=== PATIENT | male | born 1950 | race African-American/Black ===

== ENCOUNTER 2019-08-09 15:21 | Inpatient (IN) | payer OTHER, MEDICAID ==
[~2019-08-09] VITALS: Ht 165.1 cm; Wt 62.2 kg
[2019-08-09 15:53] LABS: Hematocrit 37.6 % (41.0-53.0); Hemoglobin 12.6 g/dL (13.5-17.5); Mean Corpuscular Hemoglobin 30.2 pg (28.0-32.0); Mean Corpuscular Hgb Conc. 33.7 g/dL (32.0-36.0); Mean Corpuscular Volume 89.7 fL (80.0-100.0); Platelet Count (auto) 198 10^3/uL (140-450); Red Blood Cells 4.19 10^6/uL (4.5-5.90); Red Cell Distribution Width 13.6 % (11.8-14.3); White Blood Cell 5.8 10^3/uL (4.4-10.8)
[2019-08-09 15:57] LABS: Band Neutrophils % (manual) 0; Basophils % (manual) 0 (0.0-2.0); Blast Cells 0; Metamyelocytes % 0; Myelocytes % 0; Promyelocytes % 0; Reactive Lymphocytes 0
[2019-08-09 16:07] LABS: Alanine Aminotransferase 16 U/L (16-61); Anion Gap 5 (5-15); Aspartate Aminotransferase 11 U/L (15-37); BUN/Creatinine Ratio 22.2; Blood Urea Nitrogen 20 mg/dL (7-18); Calcium 8.3 mg/dL (8.5-10.1); Carbon Dioxide 29 mmol/L (21-32); Chloride 106 mmol/L (98-107); GFR African American 108 mL/min; GFR Non-African American 89 mL/min; Glucose 98 mg/dL (74-106); Sodium 140 mmol/L (136-145)
[2019-08-09 16:10] LABS: Alkaline Phosphatase 80 U/L (45-117); Bilirubin, Total 0.4 mg/dL (0.2-1.0); Total Protein 7.5 g/dL (6.4-8.2)
[2019-08-09 16:16] LABS: Potassium 2.8 mmol/L (3.5-5.1)
[2019-08-09] MEDS ORDERED: ONDANSETRON HCL 4 MG/2 ML VIAL IV ONE (16:30)
[2019-08-09] MEDS ORDERED: POTASSIUM CHL 20MEQ/100ML 100 ML IV ONE (16:30)
[2019-08-09] MEDS ORDERED: MORPHINE SULF INJ 2 MG/ML SYRINGE 1ML IV ONE (16:30)
[2019-08-09] MEDS ORDERED: SODIUM CHLORIDE 0.9% 500 ML IV ONE (16:30)
[2019-08-09 16:53] LABS: Eosinophils % (manual) 3 (0-7); Lymphocytes % (manual) 21 (10.0-50.0); Monocytes % (manual) 17 (0-12)
[2019-08-09] MEDS ORDERED: LIDOCAINE 2% JELLY 11ml (GLYDO) ONE (17:12)
[2019-08-09] MEDS ORDERED: LIDOCAINE 2% JELLY 11ml (GLYDO) UR ONE (17:30)
[2019-08-09] MEDS ORDERED: metroNIDAZOLE 500MG/100ML 100 ML IV ONE (18:30)
[2019-08-09] MEDS ORDERED: DEXTROSE (50%) 50ML SYRG IV PRN (21:30)
[2019-08-09] MEDS ORDERED: TEMAZEPAM 15 MG CAP PO PRN (21:30)
[2019-08-09] MEDS ORDERED: ONDANSETRON HCL 4 MG/2 ML VIAL IV PRN (21:30)
[2019-08-09 22:03] LABS: Hematocrit 35.8 % (41.0-53.0)
[2019-08-09] MEDS ORDERED: cefTRIAXone 1GM/50ML D5W 50 ML IV ONE (23:00)
--- NOTE | 2019-08-09 23:07 | NUR ---
MS admit from ER CARLIN CASTELLANOS admitted to tele/MS. Patient oriented to Roula Steen, primary RN, unit, room, bed, and unit policies regarding patient care and visiting hours. Patient weighed by bed scale and encouraged to call if they need something. All questions and concerns addressed, patient verbalized understanding.
[2019-08-09 23:27] LABS: INR 1.14 (0.9-1.15); Partial Thromboplastin Time 27.5 sec (23.64-32.05)
[2019-08-10] MEDS: ATORVASTATIN 20 MG TAB PO SCH ×2 (00:04→22:14)
[2019-08-10] MEDS: DONEPEZIL HYDROCHLORIDE 5 MG TAB PO SCH ×2 (00:04→22:14)
[2019-08-10] MEDS: SODIUM CHLORIDE 0.9% 1,000 ML IV SCH ×2 (00:04→10:23)
[2019-08-10] MEDS: PANTOPRAZOLE 40 MG TAB PO SCH ×3 (00:05→22:14)
[2019-08-10] MEDS: ACCU-CHEK COMFORT CURVE STRIP VI SCH ×5 (00:05→23:40)
[2019-08-10] MEDS: InsuLIN REG 1unit/0.01ml Soln (100units/ml) SC SCH ×5 (05:38→23:40)
[2019-08-10 05:47] VITALS: BP 154/81
[2019-08-10 06:37] LABS: Hematocrit 35.6 % (41.0-53.0); Hemoglobin 11.9 g/dL (13.5-17.5); Mean Corpuscular Hemoglobin 30.2 pg (28.0-32.0); Mean Corpuscular Hgb Conc. 33.3 g/dL (32.0-36.0); Mean Corpuscular Volume 90.5 fL (80.0-100.0); Platelet Count (auto) 185 10^3/uL (140-450); Red Blood Cells 3.93 10^6/uL (4.5-5.90); Red Cell Distribution Width 13.3 % (11.8-14.3)
[2019-08-10 06:50] LABS: BUN/Creatinine Ratio 21.8; Band Neutrophils % (manual) 0; Basophils % (manual) 0 (0.0-2.0); Calcium 8.3 mg/dL (8.5-10.1); Metamyelocytes % 0; Myelocytes % 0
[2019-08-10 06:51] LABS: Blast Cells 0; Promyelocytes % 0; Reactive Lymphocytes 0
[2019-08-10 06:55] LABS: Potassium 2.8 mmol/L (3.5-5.1)
--- NOTE | 2019-08-10 06:56 | NUR ---
critical lab potassium is 2.8 hospitalist made aware. new orders received
[2019-08-10] MEDS ORDERED: POTASSIUM CHL 20 Meq TABLET PO ONE (07:00)
[2019-08-10 07:21] LABS: Eosinophils % (manual) 3 (0-7); Lymphocytes % (manual) 25 (10.0-50.0); Monocytes % (manual) 18 (0-12)
--- NOTE | 2019-08-10 08:20 | NUR ---
Opening Shift Note Received report on the patient. Awake lying in bed. Patient shows no signs of distress at this time. Discussed the plan of care with the patient. Bed in lowest position, side rails up x2, and the call light is within reach. Will continue to monitor.
[2019-08-10 09:00] VITALS: BP 151/68
[2019-08-10] MEDS: LOSARTAN POTASSIUM 25 MG TAB PO SCH (10:22)
[2019-08-10] MEDS: HCTZ 25 MG TAB PO SCH (10:22)
[2019-08-10] MEDS ORDERED: LIDOCAINE 2% JELLY 11ml (GLYDO) UR ONE (12:45)
[2019-08-10 13:00] VITALS: BP 143/79
[2019-08-10] MEDS ORDERED: TAMSULOSIN HYDROCHLORIDE 0.4 MG CAP PO ONE (13:00)
[2019-08-10 13:49] LABS: Urine Bacteria NONE SEEN /hpf (None Seen); Urine Blood 1+ /uL (Negative); Urine Mucus FEW (None Seen); Urine Specific Gravity 1.017 (1.001-1.035); Urine WBC 1583 /hpf (0 - 3); Urine WBC Clumps PRESENT /hpf (None Seen)
--- NOTE | 2019-08-10 15:30 | NUR ---
Paged urology regarding catheter.
[2019-08-10 17:00] VITALS: BP 166/88
[2019-08-10] MEDS: TAMSULOSIN HYDROCHLORIDE 0.4 MG CAP PO SCH (17:48)
--- NOTE | 2019-08-10 17:50 | NUR ---
paged hospitalist regarding BP of 166/88. Waiting for call back.
[2019-08-10] MEDS ORDERED: hydrALAZINE HCL 20 MG/ML VL IV PRN (18:00)
[2019-08-10] MEDS ORDERED: amLODIPine BESYLATE 5 MG TAB PO ONE (18:00)
[2019-08-10] MEDS: cefTRIAXone 1GM/50ML D5W 50 ML IV SCH (20:46)
[2019-08-10 21:00] VITALS: BP 151/85
[2019-08-11 04:30] VITALS: BP 146/83
[2019-08-11] MEDS: SODIUM CHLORIDE 0.9% 1,000 ML IV SCH ×2 (05:49→13:30)
[2019-08-11] MEDS: ACCU-CHEK COMFORT CURVE STRIP VI SCH ×3 (05:50→17:44)
[2019-08-11] MEDS: InsuLIN REG 1unit/0.01ml Soln (100units/ml) SC SCH ×3 (05:51→17:44)
--- NOTE | 2019-08-11 07:30 | NUR ---
OPENING NOTE ASSUMED CARE OF PT. ALERT AND ORIENTED. NO S/S OF SOB/DISTRESS NOTED. DENIES ANY PAIN. SAFETY PRECAUTIONS IN PLACE. BED SET TO LOWEST POSITION/LOCKED. BEDSIDE RIALS UP X2. BED ALARM ON. CALL LIGHT WITHIN REACH. INSTRUCTED PT TO CALL FOR ASSISTANCE. UPDATED ON POC. PT VERBALIZED UNDERSTANDING. WILL CONTINUE TO MONITOR Q 1HR AND PRN.
[2019-08-11 08:00] VITALS: BP 137/71
[2019-08-11] MEDS: PANTOPRAZOLE 40 MG TAB PO SCH ×2 (09:50→21:50)
[2019-08-11] MEDS: HCTZ 25 MG TAB PO SCH (09:50)
[2019-08-11] MEDS: LOSARTAN POTASSIUM 25 MG TAB PO SCH (09:51)
[2019-08-11] MEDS: amLODIPine BESYLATE 5 MG TAB PO SCH (09:51)
--- NOTE | 2019-08-11 10:41 | NUR ---
OFF UNIT PATIENT OFF UNIT VIA BED TO PREOP. NO S/S OF SOB/DISTRESS NOTED.
[2019-08-11] MEDS ORDERED: ceFAZolin 1GM/50ML 50 ML IV ONE (10:46)
[2019-08-11] MEDS ORDERED: SOD CHL 0.9%/ KCL 20MEQ 1,000 ML IV SCH (11:30)
[2019-08-11] MEDS ORDERED: POTASSIUM CHL 20MEQ/100ML 100 ML IV ONE (11:34)
[2019-08-11] MEDS ORDERED: MEPERIDINE HCL (25 MG/ML) 1ML VIAL ONE (11:54)
[2019-08-11] MEDS ORDERED: fentaNYL CITRATE 100 MCG/2 ML VL ONE (11:54)
[2019-08-11] MEDS ORDERED: MIDAZOLAM HCL 1MG/1ML-2 ML VIAL ONE (11:54)
[2019-08-11] MEDS ORDERED: DexAMETHasone SOD PHOS 10MG/1ML VIAL INJ ONE (12:10)
[2019-08-11] MEDS ORDERED: PROPOFOL 10 MG/ML 20 ML IV ONE (12:10)
--- NOTE | 2019-08-11 13:35 | NUR ---
BACK ON UNIT PATIENT BACK ON UNIT VIA BED FROM PACU. NO S/S OF SOB/DISTRESS NOTED.
[2019-08-11] MEDS: ACETAMINOPHEN 325 MG TAB PO PRN ×2 (13:42→19:42)
[2019-08-11 17:00] VITALS: BP 128/70
[2019-08-11] MEDS: TAMSULOSIN HYDROCHLORIDE 0.4 MG CAP PO SCH (17:44)
--- NOTE | 2019-08-11 19:40 | NUR ---
Opening Shift Note Assumed care of patient, awake, AAOX4. No S/S of distress/SOB. Patient C/O pain 6/10 to lower ABD. On room air and on bedrest. S/P cystoscopy, molina catheter patent and draining to gravity. Bed in lowest locked position, side rails up x2, call light within reach. Instructed on POC and to call for assist PRN, will continue to monitor for changes Q1hr and PRN.
[2019-08-11 20:00] VITALS: BP 136/74
[2019-08-11] MEDS: ATORVASTATIN 20 MG TAB PO SCH (21:49)
[2019-08-11] MEDS: DONEPEZIL HYDROCHLORIDE 5 MG TAB PO SCH (21:50)
[2019-08-11] MEDS: cefTRIAXone 1GM/50ML D5W 50 ML IV SCH (21:50)
[2019-08-11 22:00] VITALS: BP 136/74
[2019-08-12] MEDS: ACCU-CHEK COMFORT CURVE STRIP VI SCH ×4 (00:08→18:03)
[2019-08-12] MEDS: InsuLIN REG 1unit/0.01ml Soln (100units/ml) SC SCH ×4 (00:09→18:00)
[2019-08-12] MEDS: SODIUM CHLORIDE 0.9% 1,000 ML IV SCH ×2 (03:04→16:10)
[2019-08-12] MEDS: ACETAMINOPHEN 325 MG TAB PO PRN ×2 (04:56→11:04)
[2019-08-12 05:14] VITALS: BP 143/78
--- NOTE | 2019-08-12 07:45 | NUR ---
Opening Note Received report from warehouse shift supervisor RN. Patient is awake, alert and oriented. No signs or symptoms of distress noted at this time. Patient is on room air, respirations even and unlabored. Reviewed plan of care with patient, patient verbalized understanding. Bed in low and locked position, call light within reach. Will continue to monitor Q1 hour and PRN. Bed alarm on for safety.
[2019-08-12 09:00] VITALS: BP 153/80
[2019-08-12] MEDS: PANTOPRAZOLE 40 MG TAB PO SCH (09:41)
[2019-08-12] MEDS: amLODIPine BESYLATE 5 MG TAB PO SCH (09:42)
[2019-08-12] MEDS: LOSARTAN POTASSIUM 25 MG TAB PO SCH (09:42)
[2019-08-12] MEDS: HCTZ 25 MG TAB PO SCH (09:43)
[2019-08-12] MEDS ORDERED: traMADol HCL 50 MG TAB PO PRN (12:00)
--- NOTE | 2019-08-12 12:05 | NUR ---
Pain patient complains of pain in groin. Will medicate with PRN medications. Will continue to monitor Q1 hour and PRN.
--- NOTE | 2019-08-12 13:47 | NUR ---
Monica Rivera at bedside Discussing plan of care with patient. Will continue to monitor Q1 hour and PRN.
[2019-08-12] MEDS ORDERED: PANT40T PO (13:59)
[2019-08-12] MEDS ORDERED: DONE5TAB31 PO (13:59)
[2019-08-12] MEDS ORDERED: LOS25T PO (13:59)
[2019-08-12] MEDS ORDERED: TAM04C PO ×2 (13:59→14:00)
[2019-08-12] MEDS ORDERED: AML5T PO (13:59)
[2019-08-12] MEDS ORDERED: ATOR20TA50 PO (13:59)
[2019-08-12] MEDS ORDERED: POTASSIUM CHL 20 Meq TABLET PO ONE (15:30)
[2019-08-12] MEDS ORDERED: POTASSIUM EFFERVESENT TAB 25 MEQ PO ONE (15:30)
[2019-08-12 17:00] VITALS: BP 142/72
[2019-08-12] MEDS: TAMSULOSIN HYDROCHLORIDE 0.4 MG CAP PO SCH (18:00)
[2019-08-12 18:04] VITALS: BP 142/72
--- NOTE | 2019-08-12 18:53 | NUR ---
Discharge Discharge instructions given as ordered. Encourage to follow up with PMD as instructed. All questions and concerns addressed. Patient verbalized understanding. Medication reconciliation form completed and copy given to patient. IV catheter removed, pressure dressing applied, patient tolerated well. Patient taken down to private vehicle via wheelchair, with all personal belongings, accompanied by staff. No signs or symptoms of distress noted at this time.
== END 2019-08-12 18:50 | disposition home or self-care (01) | DRG 697 ==
LOC: ER 15:28 → OVERFLOW 15:29 → WEST WING 23:08
PROVIDERS: ADMIT Nurse Practitioner; ATTEND Internal Medicine Nephrology
PROC: 0T9B80Z Drainage of Bladder with Drainage Device, Via Natural or Artificial Opening Endoscopic (ICD-10-PCS; 2019-08-11)
PROC: 0T7D8ZZ Dilation of Urethra, Via Natural or Artificial Opening Endoscopic (ICD-10-PCS; principal; 2019-08-11 12:09)
DX: N35.919 Unspecified urethral stricture, male, unspecified site (principal); N13.30 Unspecified hydronephrosis; I69.354 Hemiplegia and hemiparesis following cerebral infarction affecting left non-dominant side; K62.5 Hemorrhage of anus and rectum; D64.9 Anemia, unspecified; E11.9 Type 2 diabetes mellitus without complications; I10 Essential (primary) hypertension; E87.6 Hypokalemia; N40.1 Benign prostatic hyperplasia with lower urinary tract symptoms; R33.8 Other retention of urine; N39.498 Other specified urinary incontinence
CPT/HCPCS: 36415; 71045; 74176; 80048; 80053; 81001; 82962; 84132; 85007; 85014; 85018; 85027; 85610; 85730; 86850; 86900; 86901; 87086; 93005; 96361; 96365; 96367; 96375; G0378; J0690; J0696; J1100; J1815; J2250; J2405; J2704; J3480; J3490

== ENCOUNTER 2019-09-19 20:33 | Emergency (ER) | payer OTHER, MEDICAID ==
[~2019-09-19] VITALS: Ht 172.7 cm; Wt 63.5 kg
[~2019-09-19 20:33] MED LIST: AML5T PO; ATOR20TA50 PO; DONE5TAB31 PO; LOS25T PO; PANT40T PO; TAM04C PO
[2019-09-20 00:38] LABS: INR 1.12 (0.9-1.15); Partial Thromboplastin Time 26.2 sec (23.64-32.05)
[2019-09-20 01:28] LABS: Basophils # (auto) 0 uL; Basophils % (auto) 0.5 % (0.0-2.0); Eosinophils # (auto) 0.2 uL; Eosinophils % (auto) 4.6 % (0.0-7.0); Hematocrit 37.7 % (41.0-53.0); Hemoglobin 12.5 g/dL (13.5-17.5); Lymphocytes # (auto) 1.7 uL; Mean Corpuscular Hemoglobin 29.1 pg (28.0-32.0); Mean Corpuscular Hgb Conc. 33.3 g/dL (32.0-36.0); Mean Corpuscular Volume 87.5 fL (80.0-100.0); Monocytes # (auto) 0.5 uL; Monocytes % (auto) 11.7 % (0.0-12.0); Neutrophils # (auto) 1.9 uL; Neutrophils % (auto) 44.2 % (37.0-80.0); Platelet Count (auto) 210 10^3/uL (140-450); Red Cell Distribution Width 14.3 % (11.8-14.3); White Blood Cell 4.3 10^3/uL (4.4-10.8)
[2019-09-20 01:48] LABS: Albumin 3.5 g/dL (3.4-5.0); BUN/Creatinine Ratio 21.7; Calcium 8.8 mg/dL (8.5-10.1)
[2019-09-20 01:50] LABS: Bilirubin, Total 0.2 mg/dL (0.2-1.0); Total Protein 7.5 g/dL (6.4-8.2)
[2019-09-20] MEDS ORDERED: HYDROcodone-ACET 5/325MG TAB PO ONE (06:00)
[2019-09-20] MEDS ORDERED: ONDANSETRON ODT 4 MG TAB PO ONE (06:00)
[2019-09-20 09:02] VITALS: BP 129/69
== END 2019-09-20 09:02 | disposition home or self-care (01) ==
LOC: EDBD 20:33 → ER 20:35
DX: R31.9 Hematuria, unspecified (principal); E11.9 Type 2 diabetes mellitus without complications; I10 Essential (primary) hypertension; Z85.46 Personal history of malignant neoplasm of prostate
CPT/HCPCS: 36415; 74176; 80053; 85025; 85610; 85730; 87086; 99284; Q0162

== ENCOUNTER 2019-09-26 13:12 | Emergency (ER) | payer OTHER, MEDICAID ==
[~2019-09-26] VITALS: Ht 180.3 cm; Wt 74.8 kg
[2019-09-26 15:49] LABS: Urine Bacteria FEW /hpf (None Seen); Urine Blood 3+ /uL (Negative); Urine Hyaline Cast MOD /lpf (0 - 2); Urine Mucus FEW (None Seen); Urine Specific Gravity 1.017 (1.001-1.035); Urine WBC 208 /hpf (0 - 3)
[2019-09-26 17:23] VITALS: BP 152/98
== END 2019-09-26 18:21 | disposition home or self-care (01) ==
LOC: EDBD 13:12 → ER 13:25
DX: N39.0 Urinary tract infection, site not specified (principal); R33.9 Retention of urine, unspecified; E11.9 Type 2 diabetes mellitus without complications; I10 Essential (primary) hypertension
CPT/HCPCS: 51702; 81001

== ENCOUNTER 2019-10-17 10:19 | Emergency (ER) | payer OTHER, MEDICAID ==
[~2019-10-17] VITALS: Ht 172.7 cm; Wt 63.5 kg
[2019-10-17 11:22] LABS: Basophils # (auto) 0 uL; Basophils % (auto) 0.3 % (0.0-2.0); Eosinophils # (auto) 0 uL; Eosinophils % (auto) 0.6 % (0.0-7.0); Hematocrit 36.4 % (41.0-53.0); Hemoglobin 11.9 g/dL (13.5-17.5); Lymphocytes % (auto) 20.8 % (10.0-50.0); Mean Corpuscular Hemoglobin 28.7 pg (28.0-32.0); Mean Corpuscular Hgb Conc. 32.7 g/dL (32.0-36.0); Mean Corpuscular Volume 87.8 fL (80.0-100.0); Monocytes # (auto) 0.5 uL; Monocytes % (auto) 10.8 % (0.0-12.0); Neutrophils # (auto) 3.2 uL; Neutrophils % (auto) 67.5 % (37.0-80.0); Nucleated Red Blood Cells % 0.1 %; Platelet Count (auto) 199 10^3/uL (140-450); Red Blood Cells 4.15 10^6/uL (4.5-5.90); Red Cell Distribution Width 14.5 % (11.8-14.3); White Blood Cell 4.8 10^3/uL (4.4-10.8)
[2019-10-17 11:40] LABS: Albumin 3.3 g/dL (3.4-5.0); BUN/Creatinine Ratio 18.7; Calcium 8.1 mg/dL (8.5-10.1); Potassium 3.3 mmol/L (3.5-5.1)
[2019-10-17 11:42] LABS: Bilirubin, Total 0.3 mg/dL (0.2-1.0); Total Protein 6.6 g/dL (6.4-8.2)
[2019-10-17 11:45] LABS: Lactic Acid w/Reflex 2.1 mmol/L (0.4-2.0)
[2019-10-17] MEDS ORDERED: POTASSIUM EFFERVESENT TAB 25 MEQ PO ONE (15:00)
[2019-10-17 15:01] LABS: Urine Bacteria NONE SEEN /hpf (None Seen); Urine Blood 2+ /uL (Negative); Urine WBC 29 /hpf (0 - 3)
[2019-10-17 15:04] VITALS: BP 147/83
[2019-10-17 15:15] LABS: Urine Specific Gravity 1.021 (1.001-1.035)
== END 2019-10-17 16:33 | disposition home or self-care (01) ==
LOC: EDBD 10:19 → ER 10:19
DX: N39.0 Urinary tract infection, site not specified (principal); N40.1 Benign prostatic hyperplasia with lower urinary tract symptoms; R33.8 Other retention of urine; E11.9 Type 2 diabetes mellitus without complications; E78.5 Hyperlipidemia, unspecified; I10 Essential (primary) hypertension; Z86.73 Personal history of transient ischemic attack (TIA), and cerebral infarction without residual deficits
CPT/HCPCS: 36415; 51702; 80053; 81001; 83605; 85025

== ENCOUNTER 2019-12-25 11:35 | Emergency (ER) | payer OTHER, MEDICAID ==
[~2019-12-25] VITALS: Ht 167.6 cm; Wt 59.0 kg
[2019-12-25 14:59] LABS: Urine WBC None Seen /hpf (0 - 3)
[2019-12-25 15:58] LABS: Urine Bacteria FEW /hpf (None Seen); Urine Blood 2+ /uL (Negative)
[2019-12-25 16:18] VITALS: BP 128/78
== END 2019-12-25 17:06 | disposition home or self-care (01) ==
LOC: ER 11:35 → EDSEX 11:35 → EDBD 11:35 → ER 17:06
DX: T83.091A Other mechanical complication of indwelling urethral catheter, initial encounter (principal); N13.9 Obstructive and reflux uropathy, unspecified; N41.9 Inflammatory disease of prostate, unspecified; E11.9 Type 2 diabetes mellitus without complications; I10 Essential (primary) hypertension; E78.5 Hyperlipidemia, unspecified; Z86.73 Personal history of transient ischemic attack (TIA), and cerebral infarction without residual deficits; Z79.899 Other long term (current) drug therapy
CPT/HCPCS: 81001

== ENCOUNTER 2020-07-09 02:56 | Emergency (ER) | payer OTHER, MEDICAID ==
[~2020-07-09] VITALS: Ht 165.1 cm; Wt 59.0 kg
[2020-07-09 04:43] LABS: Urine Bacteria MANY /hpf (None Seen); Urine Blood 3+ /uL (Negative); Urine Specific Gravity 1.017 (1.001-1.035); Urine WBC 326 /hpf (0 - 3); Urine WBC Clumps PRESENT /hpf (None Seen)
[2020-07-09] MEDS ORDERED: HYDROcodone-ACET 5/325MG TAB PO ONE (05:30)
[2020-07-09 05:32] VITALS: BP 125/67
== END 2020-07-09 07:53 | disposition home or self-care (01) ==
LOC: EDBD 02:56 → ER 03:01
DX: R33.9 Retention of urine, unspecified (principal); N39.0 Urinary tract infection, site not specified; E11.9 Type 2 diabetes mellitus without complications; E78.5 Hyperlipidemia, unspecified; I10 Essential (primary) hypertension; Z86.73 Personal history of transient ischemic attack (TIA), and cerebral infarction without residual deficits
CPT/HCPCS: 51702; 81001; 87086

== ENCOUNTER 2020-08-20 11:20 | Emergency (ER) | payer OTHER, MEDICAID ==
[~2020-08-20] VITALS: Ht 172.7 cm; Wt 72.6 kg
[2020-08-20] MEDS ORDERED: cefTRIAXone 1GM/50ML D5W 50 ML IV ONE (12:30)
[2020-08-20 14:04] LABS: Basophils # (auto) 0 10 ^3/uL (0-0.2); Basophils % (auto) 0.3 % (0.0-2.0); Eosinophils # (auto) 0 10 ^3/uL (0-0.8); Hemoglobin 13.4 g/dL (13.5-17.5); Lymphocytes # (auto) 0.6 10 ^3/uL (0.4-5.4); Lymphocytes % (auto) 4.8 % (10.0-50.0); Mean Corpuscular Hemoglobin 28.1 pg (28.0-32.0); Mean Corpuscular Hgb Conc. 32.6 g/dL (32.0-36.0); Mean Corpuscular Volume 86.2 fL (80.0-100.0); Monocytes # (auto) 0.6 10 ^3/uL (0-1.3); Monocytes % (auto) 4.8 % (0.0-12.0); Neutrophils % (auto) 90.1 % (37.0-80.0); Platelet Count (auto) 226 10^3/uL (140-450); Red Blood Cells 4.75 10^6/uL (4.5-5.90); Red Cell Distribution Width 14.5 % (11.8-14.3); White Blood Cell 12.2 10^3/uL (4.4-10.8)
[2020-08-20 15:41] LABS: Potassium 3.9 mmol/L (3.5-5.1); Sodium 139 mmol/L (136-145)
[2020-08-20 15:42] LABS: Alanine Aminotransferase 20 U/L (16-61); Alkaline Phosphatase 96 U/L (45-117); Anion Gap 12 (5-15); Aspartate Aminotransferase 21 U/L (15-37); BUN/Creatinine Ratio 18.4; Bilirubin, Total 0.5 mg/dL (0.2-1.0); Blood Urea Nitrogen 18 mg/dL (7-18); Calcium 9.3 mg/dL (8.5-10.1); Carbon Dioxide 21 mmol/L (21-32); Chloride 106 mmol/L (98-107); GFR African American 98 mL/min; GFR Non-African American 81 mL/min; Glucose 173 mg/dL (74-106)
[2020-08-20 15:43] LABS: Albumin 3.8 g/dL (3.4-5.0); Total Protein 8.1 g/dL (6.4-8.2)
[2020-08-20 18:43] VITALS: BP 175/103
== END 2020-08-20 16:35 | disposition home or self-care (01) ==
LOC: EDBD 11:20 → ER 11:20
DX: N20.0 Calculus of kidney (principal); N39.0 Urinary tract infection, site not specified; I63.9 Cerebral infarction, unspecified; N40.0 Benign prostatic hyperplasia without lower urinary tract symptoms; E11.9 Type 2 diabetes mellitus without complications; E78.5 Hyperlipidemia, unspecified; I10 Essential (primary) hypertension
CPT/HCPCS: 36415; 71045; 74176; 80053; 84484; 85025

== ENCOUNTER 2020-08-23 10:35 | Inpatient (IN) | payer OTHER, MEDICAID ==
[~2020-08-23] VITALS: Ht 172.7 cm; Wt 76.9 kg
[2020-08-23] MEDS ORDERED: SODIUM CHLORIDE 0.9% 500 ML IV ONE (10:45)
[2020-08-23 11:26] LABS: Hematocrit 35.2 % (41.0-53.0); Hemoglobin 11.5 g/dL (13.5-17.5); Mean Corpuscular Hemoglobin 28.4 pg (28.0-32.0); Mean Corpuscular Hgb Conc. 32.8 g/dL (32.0-36.0); Mean Corpuscular Volume 86.6 fL (80.0-100.0); Platelet Count (auto) 222 10^3/uL (140-450); Red Blood Cells 4.07 10^6/uL (4.5-5.90); Red Cell Distribution Width 15.7 % (11.8-14.3); White Blood Cell 10.5 10^3/uL (4.4-10.8)
[2020-08-23 11:34] LABS: Basophils % (manual) 0 (0.0-2.0); Blast Cells 0; Eosinophils % (manual) 0 (0-7); Promyelocytes % 0; Reactive Lymphocytes 0
[2020-08-23 11:40] LABS: INR 1.34 (0.9-1.15)
[2020-08-23] MEDS ORDERED: LIDOCAINE 2% JELLY 11ml (GLYDO) UR ONE (11:45)
[2020-08-23 11:48] LABS: Albumin 2.8 g/dL (3.4-5.0); Amylase 37 U/L (25-115); Anion Gap 16 (5-15); Band Neutrophils % (manual) 28; Blood Urea Nitrogen 76 mg/dL (7-18); Calcium 8.2 mg/dL (8.5-10.1); Carbon Dioxide 20 mmol/L (21-32); Chloride 104 mmol/L (98-107); Glucose 88 mg/dL (74-106); Lipase 19 U/L (73-393); Lymphocytes % (manual) 7 (10.0-50.0); Magnesium 2.3 mg/dL (1.6-2.6); Metamyelocytes % 6; Monocytes % (manual) 5 (0-12); Myelocytes % 5; Potassium 4.1 mmol/L (3.5-5.1); Sodium 140 mmol/L (136-145)
[2020-08-23 11:50] LABS: Lactic Acid w/Reflex 4.2 mmol/L (0.4-2.0)
[2020-08-23 11:54] LABS: Alanine Aminotransferase 14 U/L (16-61); Alkaline Phosphatase 79 U/L (45-117); Aspartate Aminotransferase 15 U/L (15-37); BUN/Creatinine Ratio 10.4; Bilirubin, Total 1.3 mg/dL (0.2-1.0); GFR African American 10 mL/min; GFR Non-African American 8 mL/min; Total Protein 7.5 g/dL (6.4-8.2)
[2020-08-23] MEDS ORDERED: SODIUM CHLORIDE 0.9% 1,000 ML IV ONE (13:30)
[2020-08-23] MEDS ORDERED: PIPERACILLIN-TAZOB 3.375GM 100 ML IV ONE (13:30)
[2020-08-23] MEDS ORDERED: VANCOMYCIN 1GM/250ML 250 ML IV ONE (14:30)
[2020-08-23] MEDS ORDERED: VANCOMYCIN PER PHARMACY 0 MG IV SCH (14:30)
[2020-08-23] MEDS ORDERED: NOREPINEPHRINE 8 MG/250ML KIT 250 ML IV PRN (15:30)
[2020-08-23] MEDS: SODIUM CHLORIDE 0.9% 1,000 ML IV SCH ×2 (15:57→22:23)
[2020-08-23 20:29] LABS: Urine Bacteria MANY /hpf (None Seen); Urine Blood 2+ /uL (Negative); Urine WBC 8686 /hpf (0 - 3); Urine WBC Clumps PRESENT /hpf (None Seen)
[2020-08-23 20:30] LABS: Urine Specific Gravity 1.025 (1.001-1.035)
[2020-08-23] MEDS: PANTOPRAZOLE 40 MG TAB PO SCH (22:22)
[2020-08-24] MEDS: PIPERACILLIN-TAZOB 3.375GM 100 ML IV SCH ×4 (00:12→18:28)
[2020-08-24] MEDS: SODIUM CHLORIDE 0.9% 1,000 ML IV SCH ×3 (04:50→18:10)
[2020-08-24] MEDS ORDERED: LORazepam 2MG/ML-1ML VIAL IV ONE (06:30)
[2020-08-24 08:12] LABS: Hemoglobin 12.6 g/dL (13.5-17.5); Mean Corpuscular Hemoglobin 27.9 pg (28.0-32.0); Mean Corpuscular Hgb Conc. 32.4 g/dL (32.0-36.0); Mean Corpuscular Volume 86.1 fL (80.0-100.0); Platelet Count (auto) 188 10^3/uL (140-450); Red Blood Cells 4.53 10^6/uL (4.5-5.90); Red Cell Distribution Width 15.9 % (11.8-14.3); White Blood Cell 9.4 10^3/uL (4.4-10.8)
[2020-08-24 08:31] LABS: Basophils % (manual) 0 (0.0-2.0); Blast Cells 0; Eosinophils % (manual) 0 (0-7); Myelocytes % 0; Promyelocytes % 0; Reactive Lymphocytes 0
[2020-08-24 08:34] LABS: Potassium 4.2 mmol/L (3.5-5.1)
[2020-08-24 08:38] LABS: Albumin 2.6 g/dL (3.4-5.0); BUN/Creatinine Ratio 13.1; Calcium 7.8 mg/dL (8.5-10.1)
[2020-08-24 08:41] LABS: Bilirubin, Total 0.8 mg/dL (0.2-1.0); Total Protein 7.1 g/dL (6.4-8.2)
[2020-08-24] MEDS: CHOLECALCIFEROL (VITD3) 1,000UNIT=25mCg TAB PO SCH (09:40)
[2020-08-24] MEDS: PANTOPRAZOLE 40 MG TAB PO SCH ×2 (09:40→22:00)
[2020-08-24 09:56] LABS: Band Neutrophils % (manual) 22; Lymphocytes % (manual) 2 (10.0-50.0); Metamyelocytes % 2; Monocytes % (manual) 7 (0-12)
[2020-08-24 11:22] VITALS: BP 96/59
[2020-08-24] MEDS ORDERED: VANCOMYCIN 1GM/250ML 250 ML IV ONE (13:30)
[2020-08-24] MEDS: ALBUTEROL SULF 2.5 MG/0.5ML(0.5%) NEB SOLN NEB SCH ×3 (14:20→22:00)
[2020-08-24] MEDS: HYDROcodone-ACET 5/325MG TAB PO PRN (18:31)
[2020-08-24 19:35] LABS: Protein, Urine 7.1 mg/dL (0.0-11.9)
[2020-08-24 19:41] LABS: Urine Bacteria MANY /hpf (None Seen); Urine Blood 3+ /uL (Negative); Urine Mucus FEW (None Seen); Urine Specific Gravity 1.019 (1.001-1.035); Urine WBC 840 /hpf (0 - 3); Urine WBC Clumps PRESENT /hpf (None Seen)
[2020-08-25] MEDS: SODIUM CHLORIDE 0.9% 1,000 ML IV SCH ×3 (00:50→14:13)
[2020-08-25] MEDS: ALBUTEROL SULF 2.5 MG/0.5ML(0.5%) NEB SOLN NEB SCH ×2 (02:00→14:39)
[2020-08-25] MEDS: PIPERACILLIN-TAZOB 3.375GM 100 ML IV SCH ×4 (06:00→18:10)
[2020-08-25] MEDS: PANTOPRAZOLE 40 MG TAB PO SCH ×2 (08:44→22:00)
[2020-08-25] MEDS: CHOLECALCIFEROL (VITD3) 1,000UNIT=25mCg TAB PO SCH (08:44)
[2020-08-25 09:02] LABS: Hematocrit 37.6 % (41.0-53.0); Hemoglobin 12.3 g/dL (13.5-17.5); Mean Corpuscular Hemoglobin 28.1 pg (28.0-32.0); Mean Corpuscular Hgb Conc. 32.7 g/dL (32.0-36.0); Platelet Count (auto) 182 10^3/uL (140-450); Red Blood Cells 4.38 10^6/uL (4.5-5.90); Red Cell Distribution Width 15.7 % (11.8-14.3); White Blood Cell 7.9 10^3/uL (4.4-10.8)
[2020-08-25 09:06] LABS: Basophils % (manual) 0 (0.0-2.0); Blast Cells 0; Myelocytes % 0; Promyelocytes % 0; Reactive Lymphocytes 0
[2020-08-25 09:17] LABS: Albumin 2.2 g/dL (3.4-5.0); BUN/Creatinine Ratio 14.5; Bilirubin, Direct 0.3 mg/dL (0-0.2); Calcium 7.7 mg/dL (8.5-10.1); Potassium 3.6 mmol/L (3.5-5.1)
[2020-08-25 09:19] LABS: Bilirubin, Total 0.7 mg/dL (0.2-1.0); Total Protein 5.8 g/dL (6.4-8.2)
[2020-08-25 09:20] LABS: Bilirubin, Total 0.7 mg/dL (0.2-1.0); Total Protein 6.5 g/dL (6.4-8.2)
[2020-08-25 09:47] LABS: Phosphorus 3.8 mg/dL (2.5-4.90)
[2020-08-25 12:31] LABS: Band Neutrophils % (manual) 20; Eosinophils % (manual) 1 (0-7); Lymphocytes % (manual) 11 (10.0-50.0); Metamyelocytes % 3; Monocytes % (manual) 6 (0-12)
[2020-08-25] MEDS: DONEPEZIL HYDROCHLORIDE 5 MG TAB PO SCH (22:00)
[2020-08-25] MEDS: ATORVASTATIN 20 MG TAB PO SCH (22:00)
[2020-08-26] MEDS: PIPERACILLIN-TAZOB 3.375GM 100 ML IV SCH ×3 (01:18→11:57)
[2020-08-26 08:20] LABS: Basophils # (auto) 0 10 ^3/uL (0-0.2); Basophils % (auto) 0.2 % (0.0-2.0); Eosinophils # (auto) 0.1 10 ^3/uL (0-0.8); Hematocrit 39.1 % (41.0-53.0); Hemoglobin 12.8 g/dL (13.5-17.5); Lymphocytes # (auto) 0.4 10 ^3/uL (0.4-5.4); Mean Corpuscular Hemoglobin 28.1 pg (28.0-32.0); Mean Corpuscular Hgb Conc. 32.7 g/dL (32.0-36.0); Mean Corpuscular Volume 85.9 fL (80.0-100.0); Monocytes % (auto) 14.8 % (0.0-12.0); Neutrophils # (auto) 5.3 10 ^3/uL (1.6-8.6); Nucleated Red Blood Cells % 0.1 %; Platelet Count (auto) 168 10^3/uL (140-450); Red Blood Cells 4.55 10^6/uL (4.5-5.90); Red Cell Distribution Width 16.3 % (11.8-14.3); White Blood Cell 6.9 10^3/uL (4.4-10.8)
[2020-08-26] MEDS: amLODIPine BESYLATE 5 MG TAB PO SCH (08:21)
[2020-08-26] MEDS: LOSARTAN POTASSIUM 25 MG TAB PO SCH (08:21)
[2020-08-26] MEDS: PANTOPRAZOLE 40 MG TAB PO SCH ×2 (08:22→22:20)
[2020-08-26 08:37] LABS: Potassium 3.9 mmol/L (3.5-5.1)
[2020-08-26 08:41] LABS: BUN/Creatinine Ratio 15.6
[2020-08-26] MEDS: CHOLECALCIFEROL (VITD3) 1,000UNIT=25mCg TAB PO SCH (10:00)
--- NOTE | 2020-08-26 12:49 | NUR ---
Nutrition Assessment Notes Please refer to link for full assessment notes. Est Energy needs: 8679-8398 kcals (20-23 kcal/kgBW) Est Protein needs: 58-65 gms/day (0.8-0.9 gm/kgBW) d/t pt elev RFTs Will continue to monitor and reassess prn. Addendum: 08/26/20 at [address] Amended: Links added. Addendum: 08/27/20 at [address] Pt is a consult for wounds Pt noted to have BS score of 15 per Rn note. pt with skin tear on sacrum, redness on scrotum. Consider adding MVI and Vitamin C 500 mg BID
[2020-08-26] MEDS ORDERED: VANCOMYCIN 500 MG in D5W 5% 100 ML IV ONE (16:00)
--- NOTE | 2020-08-26 18:00 | NUR ---
WOUND CARE NOTE: IN TO SEE PATIENT TODAY PER WOUND CARE CONSULT REQUEST. PATIENT ADMITTED TO [facility] WITH DIAGNOSIS OF SEPSIS, UTI. CURRENT ZINA SCORE IS ASSESSED AT 12. PATIENT IS S/P CVA, WITH CONTRACTURE OF LEFT UPPER EXTREMITY. HE IS RESTING ON SPECIALTY AIR MATTRESS IN ER. PATIENT IS TELE STATUS, WAITING FOR AVAILABLE ROOM ON TELE FLOOR. PATIENT IS NOTED TO HAVE MASD WITH SKIN EROSION TO THE POSTERIOR SCROTUM AND INTRAGLUTEAL FOLD SACRUM. WOUND PHOTOS TAKEN AT THIS TIME FOR REFERENCE. NO OTHER SKIN INTEGRITY ISSUES SEEN AT THIS TIME. RECOMMEND: FREQUENT TURN SCHEDULE Q 2 HOURS, PRN, CONDITION PERMITS, WITH PRESSURE REDISTRIBUTION, USING PILLOWS/WEDGES. BID/PRN APPLICATION WITH ZGUARD AND XEROFORM TO POSTERIOR SCROTUM, ZGUARD AND OPTIFOAM GENTLE SACRAL DRESSING, SPECIALTY AIR MATTRESS, DIETARY CONSULT, SKIN/WOUND CARE PLAN, CONTINUED MONITORING BY WOUND CARE TEAM. Addendum: 08/26/20 at 1846 by Sylvia Multani RN Amended: Links added.
[2020-08-26] MEDS: TAMSULOSIN HYDROCHLORIDE 0.4 MG CAP PO SCH (19:11)
[2020-08-26] MEDS: ATORVASTATIN 20 MG TAB PO SCH (22:20)
[2020-08-26] MEDS: DONEPEZIL HYDROCHLORIDE 5 MG TAB PO SCH (22:20)
[2020-08-26] MEDS: MEROPENEM 500MG IVPB 50 ML IV SCH (22:20)
[2020-08-26 22:26] VITALS: BP 111/57
--- NOTE | 2020-08-26 22:51 | NUR ---
Telemetry admit from [facility] STRICKLAND admitted to Telemetry unit after SBAR received. Patient oriented to Marlo Villatoro primary RN, unit, room 273, bed B, and unit policies regarding patient care and visiting hours. Patient now on continuous telemetry monitoring, tele box #49 and telemetry reading on arrival to unit is SR 87. Patient placed on bedside oxygen, weighed by bedscale and encouraged to call if they need something. All questions and concerns addressed, patient verbalized understanding.
[2020-08-27 03:31] VITALS: BP 111/57
[2020-08-27 05:04] VITALS: BP 109/50
[2020-08-27 08:18] LABS: Hemoglobin 11.5 g/dL (13.5-17.5); Mean Corpuscular Hemoglobin 27.9 pg (28.0-32.0); Mean Corpuscular Hgb Conc. 32.9 g/dL (32.0-36.0); Platelet Count (auto) 182 10^3/uL (140-450); Red Blood Cells 4.11 10^6/uL (4.5-5.90)
[2020-08-27 08:24] LABS: Basophils % (manual) 0 (0.0-2.0); Blast Cells 0; Promyelocytes % 0; Reactive Lymphocytes 0
[2020-08-27 08:25] LABS: Potassium 3.6 mmol/L (3.5-5.1)
[2020-08-27 09:00] VITALS: BP 109/62
[2020-08-27] MEDS: PANTOPRAZOLE 40 MG TAB PO SCH ×2 (10:04→22:56)
[2020-08-27] MEDS: CHOLECALCIFEROL (VITD3) 1,000UNIT=25mCg TAB PO SCH (10:35)
[2020-08-27] MEDS: MEROPENEM 500MG IVPB 50 ML IV SCH ×2 (10:35→22:57)
[2020-08-27] MEDS: SODIUM BICARBONATE 50ML VIAL 50 ML in SOD CHL 0.45% 1,000 ML IV SCH (12:32)
[2020-08-27 13:00] VITALS: BP 154/64
[2020-08-27 13:07] LABS: Band Neutrophils % (manual) 24; Eosinophils % (manual) 2 (0-7); Lymphocytes % (manual) 4 (10.0-50.0); Metamyelocytes % 5; Monocytes % (manual) 7 (0-12); Myelocytes % 6
[2020-08-27] MEDS: amLODIPine BESYLATE 5 MG TAB PO SCH (13:49)
[2020-08-27] MEDS: LOSARTAN POTASSIUM 25 MG TAB PO SCH (13:49)
[2020-08-27 17:00] VITALS: BP 144/68
[2020-08-27] MEDS: HYDROcodone-ACET 5/325MG TAB PO PRN (17:16)
[2020-08-27] MEDS: TAMSULOSIN HYDROCHLORIDE 0.4 MG CAP PO SCH (17:16)
--- NOTE | 2020-08-27 19:30 | NUR ---
Opening Shift Note Assumed care of patient. Patient oriented to self and place. No S/S of distress/SOB or pain. Patient on 2L NC. Patient has a molina catheter draining and hung below the bladder. Safety measures maintained by keeping the bed locked in lowest position, 2 side rails up, personal items and call light within reach. Instructed on POC and to call for assist PRN, will continue to monitor for changes Q1hr and PRN.
[2020-08-27 22:00] VITALS: BP 121/61
[2020-08-27] MEDS: ATORVASTATIN 20 MG TAB PO SCH (22:56)
[2020-08-27] MEDS: DONEPEZIL HYDROCHLORIDE 5 MG TAB PO SCH (22:56)
[2020-08-28] MEDS: SODIUM BICARBONATE 50ML VIAL 50 ML in SOD CHL 0.45% 1,000 ML IV SCH ×2 (00:23→13:31)
[2020-08-28 05:00] VITALS: BP 141/77
[2020-08-28 07:41] LABS: Potassium 3.4 mmol/L (3.5-5.1)
[2020-08-28 07:54] LABS: BUN/Creatinine Ratio 16.4; Bilirubin, Total 0.4 mg/dL (0.2-1.0); Calcium 8.5 mg/dL (8.5-10.1); Total Protein 6.2 g/dL (6.4-8.2)
[2020-08-28 08:15] VITALS: BP 142/68
[2020-08-28 09:00] VITALS: BP 142/68
[2020-08-28] MEDS: MEROPENEM 500MG IVPB 50 ML IV SCH ×2 (10:23→22:40)
[2020-08-28] MEDS: amLODIPine BESYLATE 5 MG TAB PO SCH (10:24)
[2020-08-28] MEDS: PANTOPRAZOLE 40 MG TAB PO SCH ×2 (10:24→22:40)
[2020-08-28] MEDS: CHOLECALCIFEROL (VITD3) 1,000UNIT=25mCg TAB PO SCH (10:24)
[2020-08-28] MEDS: LOSARTAN POTASSIUM 25 MG TAB PO SCH (10:24)
--- NOTE | 2020-08-28 10:25 | NUR ---
Scheduled medications given per order. Patient stable at this time.
[2020-08-28] MEDS ORDERED: POTASSIUM EFFERVESENT TAB 25 MEQ PO ONE (11:00)
--- NOTE | 2020-08-28 12:45 | NUR ---
Patient resting quietly in bed with no distress noted at this time. Patient stable.
[2020-08-28 13:00] VITALS: BP 155/69
--- NOTE | 2020-08-28 13:48 | NUR ---
Ordered medication given. Patient complained of 4/6 abdominal pain. Will medicate for pain. Addendum: 08/28/20 at 1358 by FELICITY SIDDIQUI RN RN Feliz medication given. Patient stable at this time. Addendum: 08/28/20 at 1359 by FELICITY SIDDIQUI RN RN PAIN medication given.
[2020-08-28] MEDS: HYDROcodone-ACET 5/325MG TAB PO PRN (13:55)
--- NOTE | 2020-08-28 15:45 | NUR ---
Patient resting quietly in bed with no distress noted; denies any pain at this time. Patient stable.
[2020-08-28 17:00] VITALS: BP 147/91
[2020-08-28] MEDS: TAMSULOSIN HYDROCHLORIDE 0.4 MG CAP PO SCH (17:12)
--- NOTE | 2020-08-28 17:13 | NUR ---
Scheduled medication given per order. Patient stable at this time.
--- NOTE | 2020-08-28 17:55 | NUR ---
Patient resting in bed, ready to eat dinner; no distress noted at this time. Patient stable.
--- NOTE | 2020-08-28 19:40 | NUR ---
Opening Shift Note Assumed care of patient, awake and alert. Patient laying in bed. No S/S of distress/SOB or pain. Safety measures maintained by keeping the bed locked in lowest position, 2 side rails up, personal items and call light within reach. Instructed on POC and to call for assist PRN, will continue to monitor for changes Q1hr and PRN.
[2020-08-28 21:43] VITALS: BP 127/64
[2020-08-28] MEDS: DONEPEZIL HYDROCHLORIDE 5 MG TAB PO SCH (22:40)
[2020-08-28] MEDS: ATORVASTATIN 20 MG TAB PO SCH (22:40)
[2020-08-29] MEDS: SODIUM BICARBONATE 50ML VIAL 50 ML in SOD CHL 0.45% 1,000 ML IV SCH ×2 (02:39→20:13)
[2020-08-29] MEDS: HYDROcodone-ACET 5/325MG TAB PO PRN ×2 (04:28→14:08)
[2020-08-29 05:00] VITALS: BP 125/55
[2020-08-29 08:08] LABS: Albumin 1.7 g/dL (3.4-5.0); Potassium 3.7 mmol/L (3.5-5.1)
[2020-08-29 08:13] LABS: Bilirubin, Total 0.4 mg/dL (0.2-1.0); Total Protein 5.5 g/dL (6.4-8.2)
[2020-08-29 08:30] VITALS: BP 108/65
[2020-08-29 09:00] VITALS: BP 108/68
[2020-08-29] MEDS: amLODIPine BESYLATE 5 MG TAB PO SCH (09:02)
[2020-08-29] MEDS: PANTOPRAZOLE 40 MG TAB PO SCH ×2 (09:02→21:39)
[2020-08-29] MEDS: CHOLECALCIFEROL (VITD3) 1,000UNIT=25mCg TAB PO SCH (09:03)
[2020-08-29] MEDS: LOSARTAN POTASSIUM 25 MG TAB PO SCH (09:03)
[2020-08-29] MEDS: MEROPENEM 500MG IVPB 50 ML IV SCH ×2 (09:04→21:39)
--- NOTE | 2020-08-29 09:04 | NUR ---
Scheduled po medications and IV abx given per order. Patient stable at this time.
--- NOTE | 2020-08-29 10:25 | NUR ---
Patient resting quietly in bed with no distress noted at this time. Patient stable.
[2020-08-29 12:37] VITALS: BP 155/68
--- NOTE | 2020-08-29 13:06 | NUR ---
Nutrition Followup Notes Pt wt is 77.2 kg Pt was sleeping wih no relatives at bedside when rounded this morning. Pt is with a Cardiac diet, appetite is poor aeb ave 42% x3 PO intake per RN doc. Per RN note, pt is with no s/s of distress or pain. Est Energy needs: 3592-2167 kcals (20-23 kcal/kgBW) Est Protein needs: 58-65 gms/day (0.8-0.9 gm/kgBW) d/t pt elev RFTs Will continue to monitor and reassess prn. LABS: BUN 20 H, Creat 3.52 H, Gluc 110 H, Ca 8.0 L, Alb 1.7 L GI: Pt had 1 BM on 08/27 per RN doc. BS: 12 high risk. Refer to wound assessment report for further details. PES: 1) Altered nutrition related lab values r/t current/chronic medical condition aeb elev RFTs, hypoglycemia, hypocalcemia, hypoalbuminemia Comments Will continue to monitor PO status, skin status, pertinent labs and weight trends. Will f/u in 3-5 days 1) Continue to closely monitor pt PO intake to meet at least 75% of meals 2) If albumin continues trending down with improved RFTs, consider Prostat 1 pkt BID 3) Continue current plan of care
[2020-08-29 16:47] VITALS: BP 150/87
[2020-08-29] MEDS: TAMSULOSIN HYDROCHLORIDE 0.4 MG CAP PO SCH (17:41)
--- NOTE | 2020-08-29 17:45 | NUR ---
Scheduled medication given per order. Patient stable.
--- NOTE | 2020-08-29 18:30 | NUR ---
Patient resting comfortably in bed with no distress noted at this time. Patient stable throughout shift.
--- NOTE | 2020-08-29 19:05 | NUR ---
assumed care, pt. awake, no c/o pain, not in distress.
[2020-08-29] MEDS: DONEPEZIL HYDROCHLORIDE 5 MG TAB PO SCH (21:39)
[2020-08-29] MEDS: ATORVASTATIN 20 MG TAB PO SCH (21:39)
[2020-08-29 22:00] VITALS: BP 128/68
[2020-08-30] MEDS: SODIUM BICARBONATE 50ML VIAL 50 ML in SOD CHL 0.45% 1,000 ML IV SCH ×2 (04:55→15:13)
[2020-08-30 05:18] VITALS: BP 133/68
[2020-08-30 06:19] LABS: Potassium 3.5 mmol/L (3.5-5.1)
[2020-08-30 06:30] LABS: Albumin 1.8 g/dL (3.4-5.0); BUN/Creatinine Ratio 18.5; Bilirubin, Total 0.4 mg/dL (0.2-1.0); Calcium 8.4 mg/dL (8.5-10.1); Total Protein 5.9 g/dL (6.4-8.2)
[2020-08-30 08:30] VITALS: BP 105/70
[2020-08-30 09:00] VITALS: BP 105/70
[2020-08-30] MEDS: PANTOPRAZOLE 40 MG TAB PO SCH ×2 (09:47→21:36)
[2020-08-30] MEDS: amLODIPine BESYLATE 5 MG TAB PO SCH (09:47)
[2020-08-30] MEDS: CHOLECALCIFEROL (VITD3) 1,000UNIT=25mCg TAB PO SCH (09:48)
[2020-08-30] MEDS: LOSARTAN POTASSIUM 25 MG TAB PO SCH (09:48)
[2020-08-30] MEDS: MEROPENEM 500MG IVPB 50 ML IV SCH ×2 (09:48→21:36)
--- NOTE | 2020-08-30 09:49 | NUR ---
Scheduled medications given per order. Patient resting quietly in bed with no distress noted at this time. Patient stable.
[2020-08-30] MEDS ORDERED: POTASSIUM EFFERVESENT TAB 25 MEQ PO ONE (12:00)
--- NOTE | 2020-08-30 12:04 | NUR ---
Ordered medication given. Patient complaint of pain in right flank; will medicate. Patient stable. Addendum: 08/30/20 at 1217 by FELICITY SIDDIQUI RN RN Patient medicated for 03/07 right flank pain.
[2020-08-30] MEDS: HYDROcodone-ACET 5/325MG TAB PO PRN (12:14)
[2020-08-30 13:00] VITALS: BP 108/63
--- NOTE | 2020-08-30 14:40 | NUR ---
Patient resting comfortably in bed with eyes closed; no distress noted. Patient stable at this time.
--- NOTE | 2020-08-30 15:15 | NUR ---
Started new IVF bag (1/2 NS with sodium bicarb). Patient stable.
--- NOTE | 2020-08-30 16:10 | NUR ---
Patient resting quietly in bed with no complaint of pain at this time.
[2020-08-30 16:30] VITALS: BP 110/77
[2020-08-30] MEDS: TAMSULOSIN HYDROCHLORIDE 0.4 MG CAP PO SCH (17:08)
--- NOTE | 2020-08-30 17:13 | NUR ---
Scheduled medication given per order. Patient stable.
--- NOTE | 2020-08-30 18:45 | NUR ---
Patient resting quietly in bed with no complaint of pain. Patient stable throughout shift.
--- NOTE | 2020-08-30 19:10 | NUR ---
ASSUMED CARE, PT. AWAKE, ORIENTED TO SELF, REPOSITIONED PT. NOT IN DISTRESS.
[2020-08-30] MEDS: ATORVASTATIN 20 MG TAB PO SCH (21:36)
[2020-08-30 22:59] VITALS: BP 144/80
[2020-08-31] MEDS: HYDROcodone-ACET 5/325MG TAB PO PRN (01:59)
[2020-08-31] MEDS: SODIUM BICARBONATE 50ML VIAL 50 ML in SOD CHL 0.45% 1,000 ML IV SCH (04:02)
[2020-08-31 05:00] VITALS: BP_SYST 126; BP_SYST 147; BP_DIAS 63; BP_DIAS 74
[2020-08-31 07:41] LABS: Potassium 3.6 mmol/L (3.5-5.1)
[2020-08-31 07:49] LABS: Albumin 1.9 g/dL (3.4-5.0); BUN/Creatinine Ratio 19.3; Bilirubin, Total 0.4 mg/dL (0.2-1.0); Calcium 8.5 mg/dL (8.5-10.1)
[2020-08-31 08:00] VITALS: BP 131/74
--- NOTE | 2020-08-31 08:00 | NUR ---
Patient in bed oriented x2. Feeder, total care. On isolation precautions for ESBL urine.
[2020-08-31 09:00] VITALS: BP 131/74
[2020-08-31] MEDS: MEROPENEM 500MG IVPB 50 ML IV SCH ×2 (09:51→22:31)
[2020-08-31] MEDS: amLODIPine BESYLATE 5 MG TAB PO SCH (09:53)
[2020-08-31] MEDS: LOSARTAN POTASSIUM 25 MG TAB PO SCH (09:54)
[2020-08-31] MEDS: PANTOPRAZOLE 40 MG TAB PO SCH ×2 (09:55→22:19)
[2020-08-31] MEDS: CHOLECALCIFEROL (VITD3) 1,000UNIT=25mCg TAB PO SCH (09:55)
[2020-08-31 13:00] VITALS: BP 128/79
[2020-08-31] MEDS: SOD CHL 0.45% 1,000 ML IV SCH (13:31)
--- NOTE | 2020-08-31 15:29 | NUR ---
Assessment Patient is a 69-year-old male. Unable to speak to patient. Assessment was completed with patient cousin Richard Ph: [phone]. Prior to admission patient reside home with Richard and functioned with assistance. Patient has a hospital bed, wheelchair and bedside commode. Richard is patient caregiver and assist patient with his ADL's. Advised Richard there is a socials service consult for home health for IV abx for 2 weeks. Informed Richard Jerry will completed order once patient is ready to discharge. Per Richard he will be able to assist with the IV anx on the day the home health is unavailable. Informed Richard blanca has the right to participate in all discharge planning. Richard verbalized understanding and agreed to discharge plan. Addendum: 08/31/20 at 1535 by PING BENITEZ Amended: Links added.
--- NOTE | 2020-08-31 16:30 | NUR ---
I spoke with Grace Del Cid NETWORK CONSULTANT regarding plan of care for this patient. I let her know that family wants patient to go home upon discharge and they have someone who is teachable to help with home IV ATB. I asked her to place more specific order for exactly what IV ATB and dose, frequency along with order for home health for IV ATB. I called [facility] Health Information Technologist Farnaz [phone] and left message asking for assistance with which infusion company to reach out to along with which home health agencies they are contracted with. Per Farnaz's voicemail, [facility] after hours/weekend contact number is [phone].
[2020-08-31 17:00] VITALS: BP 130/71
[2020-08-31] MEDS: TAMSULOSIN HYDROCHLORIDE 0.4 MG CAP PO SCH (17:49)
--- NOTE | 2020-08-31 20:10 | NUR ---
Opening Shift Note Assumed care of patient, awake and alert X2. Oriented to only name and location. No S/S of distress/SOB or pain. Patient is total care. Repositioned patient. Will continue to monitor for changes Q1hr and PRN.
--- NOTE | 2020-08-31 20:47 | NUR ---
ELEVATED TEMP BRAND EXECUTIVE reported a temp of 103.5. Initiated cooling temperatures with ice packs. Will continue to monitor Addendum: 08/31/20 at 2047 by MARLIN SULLIVAN RN RN *initiated cooling methods Addendum: 08/31/20 at 2238 by MARLIN SULLIVAN RN RN Temp. 101.4
[2020-08-31 22:00] VITALS: BP 141/81
--- NOTE | 2020-08-31 22:10 | NUR ---
Reassessed temp. Temp is now at 99.1
[2020-08-31] MEDS: ATORVASTATIN 20 MG TAB PO SCH (22:19)
[2020-09-01] MEDS: SOD CHL 0.45% 1,000 ML IV SCH (02:15)
[2020-09-01 05:00] VITALS: BP 146/86
--- NOTE | 2020-09-01 08:00 | NUR ---
OPENING SHIFT NOTE ASSUMED CARE OF PATIENT AWAKE AND ALERT X2. NO S/S OF DISTRESS NOTED. PATIENT IS BEDREST ON 2L NC. AMADO IN PLACE, HUNG TO GRAVITY DRAINING CLEAR, YELLOW URINE. BED IS IN LOWEST, LOCKED POSITION WITH SIDE RAILS UP X2, AND BED ALARM ON FOR SAFETY. WILL CONTINUE TO MONITOR Q1H AND PRN.
[2020-09-01 08:29] VITALS: BP 132/74
[2020-09-01 08:36] LABS: Potassium 3.9 mmol/L (3.5-5.1)
[2020-09-01 08:48] LABS: Albumin 1.9 g/dL (3.4-5.0); BUN/Creatinine Ratio 17.6; Bilirubin, Total 0.4 mg/dL (0.2-1.0); Calcium 7.8 mg/dL (8.5-10.1); Magnesium 1.9 mg/dL (1.6-2.6); Total Protein 5.5 g/dL (6.4-8.2)
[2020-09-01 08:59] LABS: Basophils # (auto) 0 10 ^3/uL (0-0.2); Basophils % (auto) 0.4 % (0.0-2.0); Eosinophils # (auto) 0.2 10 ^3/uL (0-0.8); Eosinophils % (auto) 1.6 % (0.0-7.0); Hematocrit 38.9 % (41.0-53.0); Hemoglobin 11.6 g/dL (13.5-17.5); Lymphocytes # (auto) 0.8 10 ^3/uL (0.4-5.4); Lymphocytes % (auto) 6.5 % (10.0-50.0); Mean Corpuscular Hemoglobin 27.5 pg (28.0-32.0); Mean Corpuscular Volume 91.7 fL (80.0-100.0); Monocytes # (auto) 1.5 10 ^3/uL (0-1.3); Monocytes % (auto) 11.6 % (0.0-12.0); Neutrophils # (auto) 10.4 10 ^3/uL (1.6-8.6); Neutrophils % (auto) 79.9 % (37.0-80.0); Platelet Count (auto) 308 10^3/uL (140-450); Red Blood Cells 4.24 10^6/uL (4.5-5.90)
[2020-09-01] MEDS: MEROPENEM 500MG IVPB 50 ML IV SCH ×2 (09:40→21:39)
[2020-09-01] MEDS: PANTOPRAZOLE 40 MG TAB PO SCH ×2 (09:41→21:39)
[2020-09-01] MEDS: amLODIPine BESYLATE 5 MG TAB PO SCH (09:41)
[2020-09-01] MEDS: LOSARTAN POTASSIUM 25 MG TAB PO SCH (09:41)
[2020-09-01] MEDS: CHOLECALCIFEROL (VITD3) 1,000UNIT=25mCg TAB PO SCH (09:41)
[2020-09-01] MEDS: HYDROcodone-ACET 5/325MG TAB PO PRN ×2 (09:42→23:34)
--- NOTE | 2020-09-01 12:22 | NUR ---
Nutrition Followup Notes wt: 81.0 kg Pt was sleeping with no family at bedside when rounded this morning. Pt is currently on cardiac diet with inadequate PO of 50% x 3 per RN doc. pt with no distress noted Est Energy needs: 1055-0694 kcals (20-23 kcal/kgBW), Est Protein needs: 58-65 gms/day (0.8-0.9 gm/kgBW) d/t pt elev RFTs. Will continue to monitor and reassess prn. LABS: BUN 30 H CREAT 1.7 H CA 7.8 L, ALB 1.9 L GI: Pt had 1 BM on 08/31 per RN doc. BS: 15 mod risk. Refer to wound assessment report for further details. PES: 1) Altered nutrition related lab values r/t current/chronic medical condition aeb elev RFTs, hypoglycemia, hypocalcemia, hypoalbuminemia Comments: Will continue to monitor PO status, skin status, pertinent labs and weight trends. Will f/u in 3-5 days 1) If albumin continues trending down with improved RFTs, consider Prostat 1 pkt BID. 2) consider ensure enlive 1 carton bid if PO is low. 3) Continue current plan of care
[2020-09-01 12:51] VITALS: BP 119/71
[2020-09-01 16:28] VITALS: BP 130/78
[2020-09-01] MEDS: SODIUM BICARBONATE 50ML VIAL 50 ML in D5W 5% 1,000 ML IV SCH ×2 (17:02→22:38)
[2020-09-01] MEDS: TAMSULOSIN HYDROCHLORIDE 0.4 MG CAP PO SCH (17:02)
--- NOTE | 2020-09-01 19:30 | NUR ---
Opening Shift Note Assumed care of patient, awake and alert. No S/S of distress/SOB or pain. Instructed on POC and to callfor assist PRN, will continue to monitor for changes Q1hr and PRN.
[2020-09-01] MEDS: ATORVASTATIN 20 MG TAB PO SCH (21:39)
[2020-09-01 21:56] VITALS: BP 144/74
[2020-09-02 05:00] VITALS: BP 132/82
[2020-09-02] MEDS: SODIUM BICARBONATE 50ML VIAL 50 ML in D5W 5% 1,000 ML IV SCH (06:10)
[2020-09-02 06:14] LABS: Basophils # (auto) 0.1 10 ^3/uL (0-0.2); Basophils % (auto) 0.8 % (0.0-2.0); Eosinophils # (auto) 0.2 10 ^3/uL (0-0.8); Eosinophils % (auto) 2.1 % (0.0-7.0); Hematocrit 35.8 % (41.0-53.0); Hemoglobin 11.8 g/dL (13.5-17.5); Lymphocytes % (auto) 8.6 % (10.0-50.0); Mean Corpuscular Hemoglobin 27.8 pg (28.0-32.0); Mean Corpuscular Volume 84.5 fL (80.0-100.0); Monocytes # (auto) 1.4 10 ^3/uL (0-1.3); Monocytes % (auto) 12.6 % (0.0-12.0); Neutrophils # (auto) 8.7 10 ^3/uL (1.6-8.6); Neutrophils % (auto) 75.9 % (37.0-80.0); Nucleated Red Blood Cells % 0.1 %; Platelet Count (auto) 350 10^3/uL (140-450); Red Blood Cells 4.24 10^6/uL (4.5-5.90); Red Cell Distribution Width 15.3 % (11.8-14.3); White Blood Cell 11.5 10^3/uL (4.4-10.8)
[2020-09-02 06:25] LABS: Albumin 1.9 g/dL (3.4-5.0); Calcium 8.1 mg/dL (8.5-10.1); Potassium 3.4 mmol/L (3.5-5.1)
[2020-09-02 06:29] LABS: BUN/Creatinine Ratio 15.4; Bilirubin, Total 0.4 mg/dL (0.2-1.0); Total Protein 6.1 g/dL (6.4-8.2)
--- NOTE | 2020-09-02 07:30 | NUR ---
closing note' endorsed care to BRAYAN Schofield. Resting in bed. No sign of pain/distress at this time
[2020-09-02 09:00] VITALS: BP 134/65
[2020-09-02] MEDS: SOD CHL 0.45% 1,000 ML IV SCH ×2 (10:11→22:50)
[2020-09-02] MEDS: LOSARTAN POTASSIUM 25 MG TAB PO SCH (10:11)
[2020-09-02] MEDS: MEROPENEM 500MG IVPB 50 ML IV SCH (10:11)
[2020-09-02] MEDS: PANTOPRAZOLE 40 MG TAB PO SCH ×2 (10:12→21:31)
[2020-09-02] MEDS: CHOLECALCIFEROL (VITD3) 1,000UNIT=25mCg TAB PO SCH (10:12)
[2020-09-02] MEDS: amLODIPine BESYLATE 5 MG TAB PO SCH (10:12)
--- NOTE | 2020-09-02 10:25 | NUR ---
WOUND CARE NOTE: Wound care in to see patient for reevaluation of skin integrity issue. Patient continue resting on air mattress in Rm. 273B. Patient is awake,alert and able to follow simple direction. He's in no stated pain at this time and he appears to be in no pain using Rey Beaver Faces Pain Scale. He needs assistance in turning and repositioning and his Stas score is 13. Skin assessment done with the assistance of patient's nurse, BRAYAN Schofield. Skin tear to patient's intragluteal fold is now resolved. His moisture related skin damage to sacrum and posterior scrotum is much improved. Skin is intact,pink and blanchable. Staff reported patient is incontinent of soft stool, however staff frequently do adithya care/check and patient continue receiving BID/PRN cleaning and application of Barrier cream to sacrum. No open wound noted, no pressure injury noted. Repositioned patient for comfort, redistributed pressure points with pillows. Patient tolerated well. Bed in low position, call gamble within reach, bed alarm on. RECOMMENDATION: Continuation of all wound care orders MD prescribed except application of Xeroform dressing to scrotum as wound is much improved; continue with skin/wound plan of care,continue monitoring by wound care while Stas score is <18. Addendum: 09/02/20 at 1502 by Mayra Nielson RN Amended: Links added.
--- NOTE | 2020-09-02 10:30 | NUR ---
BED BATH AND LINEN CHANGE BED BATH PROVIDED TO PATIENT WELL COMPLETE LINEN CHANGE. PATIENT TOLERATED WELL. WILL CONTINUE CARE.
[2020-09-02 13:02] VITALS: BP 120/74
--- NOTE | 2020-09-02 14:53 | NUR ---
PATIENT REPORTS HAVING PAIN HOWEVER, PT CANNOT RATE PAIN SCALE AND CANNOT STATE WHERE HIS PAIN LEVEL IS. PATIENT DEMO'D INCREASE TONE TO R SIDE OF BODY. PT RECD PROM EXERCISES FOR BILAT UE'S AND LE'S X 10 REPS. PT WAS REPOSITION WITH PILLOWS AND LEFT CALL LIGHT WITHIN REACH. Addendum: 09/02/20 at 1455 by Katia Ashraf PT Amended: Links added.
[2020-09-02 16:41] VITALS: BP 128/70
--- NOTE | 2020-09-02 16:56 | NUR ---
1569 09/02/20 - Faxed to [facility] at [phone] face sheet, order for home IV ABx Erapenem 1 GM daily, H/P, labs, meds, discharge summary. Contacted by Albin at [facility] who requested a anaphylactic kit or first dose to be given prior to discharge. Faxed to [facility] at [phone] and [facility] at [phone] pending review and accepting agency. Also faxed packe to [facility] [phone] requesting authorization. Pending review and approved authorization. Informed nurse Kanwal of above information.
[2020-09-02] MEDS: TAMSULOSIN HYDROCHLORIDE 0.4 MG CAP PO SCH (17:50)
--- NOTE | 2020-09-02 19:30 | NUR ---
Opening Shift Note Assumed care of patient, awake and alert. No S/S of distress/SOB or pain. Instructed on POC and to call for assist PRN, will continue to monitor for changes Q1hr and PRN.
[2020-09-02 21:00] VITALS: BP 133/63
[2020-09-02] MEDS: ATORVASTATIN 20 MG TAB PO SCH (21:31)
[2020-09-02] MEDS: HYDROcodone-ACET 5/325MG TAB PO PRN (21:32)
[2020-09-03] MEDS: SOD CHL 0.45% 1,000 ML IV SCH (03:16)
[2020-09-03 05:00] VITALS: BP 129/61
[2020-09-03 05:39] LABS: Albumin 1.8 g/dL (3.4-5.0); Calcium 7.6 mg/dL (8.5-10.1); Potassium 3.1 mmol/L (3.5-5.1)
[2020-09-03 05:42] LABS: BUN/Creatinine Ratio 13.6; Bilirubin, Total 0.4 mg/dL (0.2-1.0); Total Protein 5.9 g/dL (6.4-8.2)
--- NOTE | 2020-09-03 07:57 | NUR ---
closing note endorsed care to BRAYAN Alcantar. resting in bed, no sign of pain/distress at this time
--- NOTE | 2020-09-03 08:02 | NUR ---
Left a message to Nehemias EISENBERG regarding K 3.1, awaiting to call back.
--- NOTE | 2020-09-03 09:00 | NUR ---
Oxygen room air 95-100 %. No respiratory distress noted.
[2020-09-03] MEDS: PANTOPRAZOLE 40 MG TAB PO SCH (09:32)
[2020-09-03] MEDS: amLODIPine BESYLATE 5 MG TAB PO SCH (09:33)
[2020-09-03] MEDS: CHOLECALCIFEROL (VITD3) 1,000UNIT=25mCg TAB PO SCH (09:33)
[2020-09-03] MEDS: LOSARTAN POTASSIUM 25 MG TAB PO SCH (09:33)
--- NOTE | 2020-09-03 09:49 | NUR ---
I called [facility] Synoptic Meteorologist Farnaz regarding home IV ATB/home health order ([phone]). She will call [facility] and provide them with authorization. She said they only home health agency they contract with in [place] is [facility]. I faxed home health order to [facility].
[2020-09-03] MEDS ORDERED: SODIUM CHLORIDE IV SCH (10:00)
[2020-09-03] MEDS ORDERED: ERTAPENEM SOD INJ 1 GM in SODIUM CHL 0.9% 50 ML IV SCH (10:00)
[2020-09-03] MEDS ORDERED: ERTAPENEM IV SCH (10:00)
--- NOTE | 2020-09-03 10:41 | NUR ---
I spoke with Karolina at [facility], she said patient was previously on service with them and they will be able to accept patient back-they will send nurse out tomorrow. I called Farnaz at [facility]-she will send updated authorization to [facility].
--- NOTE | 2020-09-03 12:08 | NUR ---
I called [facility] and spoke with Flor-she will call me back when IV ATB arrangements are complete.
--- NOTE | 2020-09-03 12:48 | NUR ---
I received a call from [facility] Wire Communications Engineer Farnaz asking that I re-fax home IV ATB and home health order to her along with clinical information for 09/01 and 09/02-faxed as requested.
[2020-09-03 13:00] VITALS: BP 137/75
[2020-09-03] MEDS ORDERED: POTASSIUM CHL 20 Meq TABLET PO ONE (13:15)
--- NOTE | 2020-09-03 13:52 | NUR ---
Spoke to FAINA Del Cid regarding patient is unable to swallow Potassium tablets, received new order to [facility].
[2020-09-03] MEDS ORDERED: POTASSIUM EFFERVESENT TAB 25 MEQ PO ONE (14:00)
--- NOTE | 2020-09-03 14:45 | NUR ---
[facility] (phone [phone]) will deliver IV ATB to patient's home between 7-11pm this evening-they have already spoken with family member. [facility] (phone [phone]) will send nurse out tomorrow to patient's home. I relayed this information to nurse Katharine. Katharine asked about transportation home, I let her know that there was no request for transportation home, and that every time patient has been here, family or caregiver has transported him home.
--- NOTE | 2020-09-03 15:00 | NUR ---
Per Claritza VIRGEN, family always transport patient home, Will call Richard (Pt's Cousin).
[2020-09-03 15:08] VITALS: BP 137/75
--- NOTE | 2020-09-03 15:14 | NUR ---
Attempted to call Richard hameed Addendum: 09/03/20 at 1515 by ALBERTO ROBLES RN Left a message to Richard capellan patient is ready to berry picker. Awaiting to call back.
--- NOTE | 2020-09-03 15:36 | NUR ---
Attempted to call [employer] Ph: [phone] again, no one spanish moss picker the phone.
--- NOTE | 2020-09-03 16:23 | NUR ---
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 Awaiting to call back.
--- NOTE | 2020-09-03 16:55 | NUR ---
Spoke to Richard - caregiver stated the hospital have to arrange to transportation. EMMANUEL- Elizabeth paged.
[2020-09-03 17:00] VITALS: BP 158/79
--- NOTE | 2020-09-03 17:01 | NUR ---
Spoke to Elizabeth stated family has to pay out of the pocket for a transportation. Will talk to family.
--- NOTE | 2020-09-03 17:03 | NUR ---
Informed Richard that the insurance does not cover for transportation and he has to pay 200 dollars per Elizabeth. Per Richard the hospital arrange transportation for patient before and this is a lie. Elizabeth paged.
--- NOTE | 2020-09-03 17:07 | NUR ---
Per Elizabeth the insurance does not cover for transportation and Elizabeth spoke with Richard before and Richard agreed to arrange transportation. Will talk to PAYAL.
--- NOTE | 2020-09-03 17:20 | NUR ---
Per Ritesh MOE, the hospital will arrange transport for patient last time due to patient's insurance does not cover. Informed Richard caregiver that transportation will picking belt operator patient at 8 PM.
--- NOTE | 2020-09-03 17:35 | NUR ---
[facility] # [phone] spoke to Art. will machine operator picker patient at 8 PM call by PAYAL Ramos notified. Signed: 09/03/20 at 1737 by ALBERTO ROBLES RN
[2020-09-03] MEDS: TAMSULOSIN HYDROCHLORIDE 0.4 MG CAP PO SCH (18:21)
--- NOTE | 2020-09-03 19:15 | NUR ---
Keep Gao to home and monthly change per Dr. CERVANTES note.
--- NOTE | 2020-09-03 20:29 | NUR ---
called [facility] and spoke to [facility], and he advised transport will be there around 2129 or sooner. awaiting transport.
--- NOTE | 2020-09-03 22:05 | NUR ---
Discharge instructions given as ordered. Encourage to follow up with PMD as instructed. All questions and concerns addressed. Patient verbalized understanding. Medication reconciliation form completed and copy given to patient. Midline IV and Gao to go with patient per RN dayshift report and MD notes. Telemetry unit returned to ICU. Patient taken to vehicle via wheelchair with all personal belongings, accompanied by staff and family member. No distress noted at time of departure. vaccinations uptodate.
== END 2020-09-03 21:48 | disposition home health service (06) | DRG 871 ==
LOC: ER 10:35 → EDBD 10:35 → TELE 10:36 → TELE-WESTW 08-26 21:45
PROVIDERS: ADMIT Internal Medicine; ATTEND Internal Medicine
DX: A41.9 Sepsis, unspecified organism (principal); N17.0 Acute kidney failure with tubular necrosis; E44.0 Moderate protein-calorie malnutrition; N13.6 Pyonephrosis; I69.354 Hemiplegia and hemiparesis following cerebral infarction affecting left non-dominant side; Z20.828 Contact with and (suspected) exposure to other viral communicable diseases; N40.1 Benign prostatic hyperplasia with lower urinary tract symptoms; R33.8 Other retention of urine; N31.9 Neuromuscular dysfunction of bladder, unspecified; N18.9 Chronic kidney disease, unspecified; I12.9 Hypertensive chronic kidney disease with stage 1 through stage 4 chronic kidney disease, or unspecified chronic kidney disease; E78.5 Hyperlipidemia, unspecified; I25.10 Atherosclerotic heart disease of native coronary artery without angina pectoris; E86.0 Dehydration; D64.9 Anemia, unspecified; E11.22 Type 2 diabetes mellitus with diabetic chronic kidney disease; H91.90 Unspecified hearing loss, unspecified ear; E87.6 Hypokalemia; N32.0 Bladder-neck obstruction; K57.30 Diverticulosis of large intestine without perforation or abscess without bleeding; Z68.25 Body mass index [BMI] 25.0-25.9, adult
CPT/HCPCS: 36415; 71045; 74176; 80048; 80053; 80076; 80202; 81001; 82150; 82570; 83605; 83690; 83735; 83880; 84100; 84156; 84300; 84484; 85007; 85025; 85027; 85610; 85730; 87040; 87077; 87086; 87088; 87186; 87426; 94640; 97110; 97530; 99291; G0378; J1335; J2185; J2543; J7060